=== PATIENT | female | born 1985 | race Caucasian/White ===

== ENCOUNTER 2021-01-27 15:55 | Emergency (ER) | payer BC, SELFPAY ==
--- NOTE | 2021-01-27 16:03 | ED.DENTAL ---
HPI - Dental/Oral General Chief complaint: Dental/Oral Stated complaint: toothache Time Seen by Provider: 01/27/21 16:03 Source: patient and RN notes reviewed History of Present Illness HPI Narrative: Patient is a 35-year-old female who presents the urgent care with complaints of lower left dental pain. Patient states that it started on Wednesday and she did call her dentist this morning who prescribed her clindamycin. Patient states that she was on clindamycin last month and the pain and swelling returned. Patient states that she is supposed to get the tooth pulled in 3 weeks. States that she has been alternating Advil and Tylenol as well as taking the clindamycin. Reports of extreme left lower jaw swelling. States that she has been using ice packs to the jaw. No other acute complaints. Denies of any fever, nausea, vomiting. States that she is having some body aches . Patient is tearful but otherwise no acute distress noted. Patient aware of the plan of care. Some parts of this dictation were generated by voice recognition software and may contain typographical and/or grammatical inaccuracies. Related Data Home Medications Medication Instructions Recorded Confirmed clindamycin HCl 01/27/21 Allergies Allergy/AdvReac Type Severity Reaction Status Date / Time diphenhydramine Allergy Mild unknown Verified 08/27/18 00:22 hydromorphone [From Dilaudid] Allergy Unknown Verified 01/27/21 16:08 Review of Systems Review of Systems: CONSTITUTIONAL: Denies fever, chills, or sweats. EYES: Denies visual changes, redness, or discharge. ENT: Denies rhinorrhea, congestion, sore throat, or otalgia. Reports of severe left lower dental pain with facial swelling CARDIOVASCULAR: Denies chest pain, palpitations, or edema. RESPIRATORY: Denies cough or dyspnea. GASTROINTESTINAL: Denies abdominal pain, nausea, vomiting, or diarrhea. GENITOURINARY: Denies dysuria or hematuria. SKIN: Denies rash or itching. MUSCULOSKELETAL: Denies back pain, joint pain, or myalgia. NEUROLOGIC: Denies headache, numbness, or weakness. All other systems reviewed are negative, except as documented in HPI. PMFSH Comments At the time of my signature, I reviewed and agree with the nursing past medical, surgical, social, and family history. There is no relevant family history pertinent to the patient complaint. Exam Narrative: GENERAL: This is a well-nourished, well-developed patient, in no apparent distress. HEAD: normocephalic, atraumatic. EYES: PERRL. Sclera clear/white. Vision is grossly intact. EARS: External ears normal, auditory canals clear and without drainage, TMs normal without perforation. Hearing grossly intact. NOSE: External nose normal with no obvious nasal discharge, nares without redness, no rhinorrhea. THROAT: Mucous membranes moist, moderate erythema to posterior oropharynx with mild postnasal drainage DENTAL: avulsed open lower left third molar, tooth #17 with moderate surrounding erythema and edema NECK: Neck supple, moderate left submandibular tender lymphadenopathy CARDIOVASCULAR: Regular rate and rhythm without murmurs, gallops, or rubs. RESPIRATORY: Clear to auscultation. Breath sounds equal bilaterally. No wheezes, rales, or rhonchi. SKIN: warm, intact with no suspicious lesions or rash, good texture and turgor. NEURO: awake, alert, and oriented to person, place and time. There were no obvious focal neurologic abnormalities. EXTREMITIES: No clubbing, cyanosis, or edema. Course Vital Signs Vital signs: Vital Signs Temperature 98 F 01/27/21 16:05 Pulse Rate 102 H 01/27/21 16:05 Respiratory Rate 16 01/27/21 16:05 Blood Pressure 167/111 H 01/27/21 16:05 Pulse Oximetry 100 01/27/21 16:05 Temperature 98 F 01/27/21 16:05 Pulse Rate 102 H 01/27/21 16:05 Respiratory Rate 16 01/27/21 16:05 Blood Pressure 167/111 H 01/27/21 16:05 Pulse Oximetry 100 01/27/21 16:05 Reviewed-patient is informed that they may hav
[2021-01-27 16:05] VITALS: BP 167/111; PULSE 102; RESP 16; TEMP 36.6; O2SAT 100
== END 2021-01-27 16:21 | disposition home or self-care (01) ==
PROVIDERS: Emergency Provider Nurse Practitioner Family
DX: K04.7 Periapical abscess without sinus (principal)
CPT/HCPCS: 99213; G0463

== ENCOUNTER 2021-01-28 20:20 | Emergency (ER) | payer BC, SELFPAY ==
[2021-01-28 20:36] VITALS: BP 150/98; PULSE 87; RESP 18; TEMP 36.9; O2SAT 100
--- NOTE | 2021-01-28 21:45 | PC.NURSE ---
Call to waiting room, no answer.
--- NOTE | 2021-01-29 00:03 | PC.NURSE ---
Call to waiting room, no answer.
== END 2021-01-29 00:03 | disposition left against medical advice (07) ==
LOC: ANHED 01-29 00:07
DX: K08.89 Other specified disorders of teeth and supporting structures (principal)
CPT/HCPCS: 99199